=== PATIENT | male | born 1960 | race Caucasian/White ===

== ENCOUNTER → 2017-11-07 | Outpatient (CLI) | payer OTHER ==
[~2017-11-07] MED LIST: GLUCTAB7 PO; MULTTAB58 PO; anti-inflammatory PO
--- NOTE | 2017-11-07 11:37 | DIAGNOSTIC IMAGING REPORT ---
R HIP UNILATERAL 2 VIEWS CLINICAL HISTORY: 57 years-old Male presenting with M25.551 Right hip pain right. TECHNIQUE: Frontal and frog-leg lateral views of the right hip were obtained. COMPARISON: None. FINDINGS: Right hip joint congruent. No acute fracture. No advanced degenerative change. No malalignment. Visualized portion of the bony pelvis normal. IMPRESSION: No acute osseous injury or dense degenerative change of the right hip. Electronically signed by: Zheng Porras M.D. 11/07/2017 11:36 AM Dictated Date/Time: 11/07/2017 11:35 AM
== END | disposition home or self-care (01) ==
LOC: C.RAD 10:03
PROVIDERS: ATTEND Neuromusculoskeletal Medicine & OMM
DX: M25.551 Pain in right hip (principal)

== ENCOUNTER → 2017-11-14 | Outpatient (CLI) | payer OTHER ==
[2017-11-14 09:41] LABS: HEMOGLOBIN A1C 5.2 % (4.5-5.6)
[2017-11-14 09:49] LABS: BLOOD UREA NITROGEN 14 mg/dl (7-18); CALCIUM 8.8 mg/dl (8.5-10.1); CARBON DIOXIDE 30 mmol/L (21-32); CREATININE 0.94 mg/dl (0.60-1.40); GLUCOSE 93 mg/dl (70-99); POTASSIUM 4.5 mmol/L (3.5-5.1); SODIUM 139 mmol/L (136-145)
== END | disposition home or self-care (01) ==
LOC: C.LAB 09:00
PROVIDERS: ATTEND Neuromusculoskeletal Medicine & OMM
DX: R73.09 Other abnormal glucose (principal)

== ENCOUNTER 2019-01-14 13:18 | Observation (INO) ==
[2019-01-14] MEDS ORDERED: SODIUM CHLORIDE 0.9% 1000ML 1,000 ML IV SCH ×2 (14:15→19:30)
--- NOTE | 2019-01-14 14:31 | XRay Report ---
XR chest 1V portable CLINICAL HISTORY: Chest Pain dyspnea COMPARISON STUDY: No previous studies for comparison. FINDINGS: The bones soft tissues and hemidiaphragms are normal. The cardiomediastinal silhouette is n ormal. The lungs are clear. The pulmonary vasculature is normal. IMPRESSION: Negative chest. The above report was generated using voice recognition software. It may contain grammatical, syntax or spelling errors. Electronically signed by: Aldair Brito M.D. 01/14/2019 2:30 PM
[2019-01-14 14:34] LABS: Eosinophils # (auto) 0.02 K/uL (0-0.5); Eosinophils % (auto) 0.4 %; Hematocrit (blood only) 45.6 % (42-52); Immature Granulocytes # (auto) 0.01 K/uL (0.00-0.02); Immature Granulocytes % (auto) 0.2 %; Lymphocytes # (auto) 1.65 K/uL (1.2-3.4); Lymphocytes % (auto) 29.1 %; Mean Corpuscular Hgb Conc 35.1 g/dL (32-36); Mean Corpuscular Volume 89.9 fL (80-100); Mean Platelet Volume 8.9 fL (7.4-10.4); Monocytes # (auto) 0.31 K/uL (0.11-0.59); Monocytes % (auto) 5.5 %; Neutrophils # (auto) 3.68 K/uL (1.4-6.5); Neutrophils % (auto) 64.8 %; Platelet Count 156 K/uL (130-400); RDW Coefficient of Variation 12.5 % (11.5-14.5); RDW Standard Deviation 41.1 fL (36.4-46.3); Red Blood Count 5.07 M/uL (4.7-6.1); White Blood Count 5.67 K/uL (4.8-10.8)
[2019-01-14] MEDS ORDERED: ASPIRIN CHEW 324 MG PO STA (14:37)
[2019-01-14 14:44] LABS: INR 1.1 (0.9-1.1); Prothrombin Time 10.8 Seconds (9.0-12.0)
[2019-01-14 14:52] LABS: Alanine Aminotransferase 21 U/L (12-78); Albumin Level 4.3 gm/dl (3.4-5.0); Aspartate Aminotransferase 43 U/L (15-37); BUN Creatinine Ratio 18.9 (10-20); Blood Urea Nitrogen 14 mg/dl (7-18); Calcium 9.6 mg/dl (8.5-10.1); Carbon Dioxide 27 mmol/L (21-32); Chloride 106 mmol/L (98-107); Creatinine Clr Calc Pharmacy 118.5 ml/min; Est GFR (African American) 117.2; Est GFR (Non-African American) 101.1; Glucose 105 mg/dl (70-99); Potassium 3.8 mmol/L (3.5-5.1); Sodium 139 mmol/L (136-145)
[2019-01-14 14:56] LABS: Albumin Globulin Ratio 1.3 (0.9-2); Alkaline Phosphatase 74 U/L (45-117); Globulin 3.2 gm/dl (2.5-4.0); Total Protein 7.5 gm/dl (6.4-8.2); Troponin I < 0.015 ng/ml (0-0.045)
--- NOTE | 2019-01-14 16:22 | History & Physical Report ---
Date of Service January 14, 2019 Assessment & Plan (1) Chest pain: Associated with dizziness and diaphoresis. Chest pain symptoms lasted 5 minutes then resolved. He continues to feel "dizzy" but orthostatic BPs are normal. Differential - cardiac (ischemic) vs GI (GERD/esophageal spasm) vs PEs (extensive travel in September/October/November) vs other. Plan : 1. He has had considerable GI symptoms the last few days so will give GI cocktail now followed by PPI. 2. Serial troponins. 3. Telemetry. 4. Continue aspirin for now. 5. CTA chest -- r/o PEs. If negative then will pursue stress echo in AM. 6. Check lipids in am. 7. Check TSH, r/o hyperthyroidism. Present on Admission?: Yes (2) Total bilirubin, elevated: 2014 total bilirubin was also mildly elevated with normal direct bilirubin. 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 No additional work-up needed. Present on Admission?: Yes (3) Elevated CPK: Patient was out in his yard yesterday doing heavy yard work and then worked out at the gym for 1-2 hours today. Thus, he has mild rhabdomyolysis from heavy exertional activity. Hydrate, repeat CPK in am. Present on Admission?: Yes (4) Elevated blood-pressure reading without diagnosis of hypertension: Trend BPs for now. Present on Admission?: Yes (5) DVT prophylaxis: Low risk for VTE. If CTA chest is negative for PE then simply ambulate. Will place patient on observation status. If work-up is negative then likely home tomorrow. History of Present Illness Chief Complaint: chest pain Primary Care Provider: Silvino Randall, DO 58yo male with no significant PMH who presents with concern of chest pain. He was attending [employer] services at noon and roughly senior care through the service he developed chest discomfort in the lower mid-sternal area. The pain lasted 2-5 minutes at most. He described the pain as a "piercing" or tightness. He felt a little lightheaded and was diaphoretic. The pain did not radiate into the arms, neck or jaw. He did not have dyspnea but he stated he took deep breaths to help with the symptoms. After the symptoms resolved he managed to continue attending the [employer] service. However, he felt shaky and lightheaded. Over the last few days he had what he thought was reflux symptoms. He took mylaanta last night for the BEAR. He took the mylaanta right at bedtime. He had "churning" in his stomach along with burping. No actual burning sensation or nausea. Last meal was breakfast; tolerated this without difficulty. Also attended an exercise class this am for about an hour and felt well without any limiting symptoms. In fact he is an avid cycler and has had no recent chest pain or dyspnea (cycles for 1-2 hours each work-out). He traveled (by car) to [place] in and then traveled back to [place] on December 08. No travel since. Allergies Allergy/AdvReac Type Severity Reaction Status Date / Time No Known Allergies Allergy Unverified 01/14/19 14:15 Home Medications Home Medications Medication Instructions Recorded Confirmed Type coenzyme Q10 [CoQ-10] 200 mg PO DAILY 01/14/19 01/14/19 History glucosamine sulfate [Glucosamine] 500 mg PO DAILY 01/14/19 01/14/19 History multivitamin [Multiple Vitamins] 1 tab PO DAILY 01/14/19 01/14/19 History Past Med/Surg History Medical History No significant past medical history Surgical History History of arthroscopic knee surgery right knee Family History Father , age 78 Congestive heart failure autopsy showed he from CHF Hypertension Mother , age 68 from MVA Diabetes Brother Diabetes Social History Preferred Language: Turkish Communication Ability: Effective 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 Beliefs That Will Affect Care: None marital status: marital status details: 3 children Current Living Situation: Spouse current occupational status: retired Other Information That Helps Us Care for You: 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 Feels Safe at Home: Yes Safety Concerns: Feels Safe At This Time Smoking Status: Never smoker Do You Dip or Chew Tobacco: No Second Hand Exposure: No Tobacco Cessation Education Requested by Patient: No Hx Alcohol Use: No Hx Substance Use: No Review of Systems Constitutional: no fever, no anorexia, no weight loss and no weight gain Eyes: no worsening vision Ear, Nose, Mouth, Throat: no nasal congestion, no sore throat and no dysphagia Respiratory: no dyspnea, no dyspnea on exertion, no hemoptysis, no pain on inspiration and no sputum production Cardiovascular: as per Subjective / HPI and + chest pain; no orthopnea, no paroxysmal nocturnal dyspnea and no edema Gastrointestinal: + belching and + heartburn; no abdominal pain, no vomiting, no change in stools, no constipation, no diarrhea/loose stools, no blood in stools and no melena Genitourinary: no dysuria Musculoskeletal: + joint pain (knees); no back pain Integumentary: no rash Neurologic: no paralysis, no tingling and no numbness Psychiatric: + anxiety (during the episode today); no depression and no abnormal sleep pattern Endocrine: no diabetes Hematologic / Lymphatic: no easy bleeding and no easy bruising Physical Exam Constitutional: well developed and well nourished; no acute distress and not ill appearing Eyes: PERRL ENMT: external ear and nose normal, oropharynx normal Ears: no EAC abnormality and no TM abnormality Neck: trachea midline, no thyromegaly Respiratory: normal respiratory effort, lungs clear to auscultation Cardiovascular: RRR, no murmur, no edema Heart Sounds: normal S1 and normal S2 Vessels: posterior tibial pulses present and dorsalis pedis pulses present; no JVD Chest (Breasts): Additional Comments: no reproducible chest wall pain to palpation Gastrointestinal (Abdomen): normal bowel sounds, soft, nontender, no hepatosplenomegaly Musculoskeletal: no cyanosis or clubbing, extremities motor strength 5/5 Skin: no rashes, warm and dry Neurologic: patellar DTR's 2+ bilat, sensation intact moves all extremities; no focal motor deficits Psychiatric: A+Ox3, euthymic affect Mood: no anxious mood Lymphatic: no cervical lymphadenopathy Results & Data Vital Signs (Past 12 Hours) Vital Signs Temp Pulse Resp BP Pulse Ox 01/14/19 15:11 54 L 16 150/86 H 01/14/19 14:26 51 L 20 130/78 01/14/19 13:25 37.1 C 63 18 171/86 H 97 Laboratory Results Laboratory Results - last 24 hr 01/14/19 01/14/19 01/14/19 14:24 14:24 14:24 WBC 5.67 RBC 5.07 Hgb 16.0 Hct 45.6 MCV 89.9 MCH 31.6 MCHC 35.1 RDW Std Deviation 41.1 RDW Coeff of Jenn 12.5 Plt Count 156 MPV 8.9 Immature Gran % (Auto) 0.2 Neut % (Auto) 64.8 Lymph % (Auto) 29.1 [place] % (Auto) 5.5 Eos % (Auto) 0.4 Baso % (Auto) 0.0 Immature Gran # (Auto) 0.01 Neut # (Auto) 3.68 Lymph # (Auto) 1.65 [place] # (Auto) 0.31 Eos # (Auto) 0.02 Baso # (Auto) 0.00 PT 10.8 INR 1.1 Sodium 139 Potassium 3.8 Chloride 106 Carbon Dioxide 27 Anion Gap 6.0 BUN 14 Creatinine 0.75 Est Cr Clr Drug Dosing 118.5 Est GFR ( Amer) 117.2 Est GFR (Non-Af Amer) 101.1 BUN/Creatinine Ratio 18.9 Glucose 105 H Calcium 9.6 Total Bilirubin 2.0 H AST 43 H ALT 21 Alkaline Phosphatase 74 Total Creatine Kinase Troponin I < 0.015 Total Protein 7.5 Albumin 4.3 Globulin 3.2 Albumin/Globulin Ratio 1.3 Lipase 114 TSH 01/14/19 14:24 WBC RBC Hgb Hct MCV MCH MCHC RDW Std Deviation RDW Coeff of Jenn Plt Count MPV Immature Gran % (Auto) Neut % (Auto) Lymph % (Auto) [place] % (Auto) Eos % (Auto) Baso % (Auto) Immature Gran # (Auto) Neut # (Auto) Lymph # (Auto) [place] # (Auto) Eos # (Auto) Baso # (Auto) PT INR Sodium Potassium Chloride Carbon Dioxide Anion Gap BUN Creatinine Est Cr Clr Drug Dosing Est GFR ( Amer) Est GFR (Non-Af Amer) BUN/Creatinine Ratio Glucose Calcium Total Bilirubin AST ALT Alkaline Phosphatase Total Creatine Kinase 756 H Troponin I Total Protein Albumin Globulin Albumin/Globulin Ratio Lipase TSH 0.293 L Diagnostic Findings cxr - no infiltrates ekg - my reading - NSR, RBBB, no ST changes; no change from 2015 EKG. Code Status & VTE Plan Code Status level 1 full code VTE Prophylaxis Plan VTE Prophylaxis will be ordered: No (1) Chest pain Chest pain type: unspecified Qualified Code(s): R07.9 - Chest pain, unspecified
[2019-01-14] MEDS ORDERED: GI COCKTAIL ED USE PO ONE ×2 (17:17→17:21)
[2019-01-14] MEDS ORDERED: OPTIRAY 320 125ml IV PRN (18:28)
--- NOTE | 2019-01-14 18:48 | CT Scan Report ---
CHEST CTA for PULMONARY ARTERIES CT DOSE: 451.36 mGy.cm HISTORY: recent travel, atypical chest pain TECHNIQUE: Multiaxial CT images of the chest were performed following the intravenous administration of contrast to evaluate the pulmonary arteries. Maximal intensity projection images were also obtaine d. A dose lowering technique was utilized adhering to the principles of ALARA. COMPARISON STUDY: None. FINDINGS: Normal caliber thoracic aorta with no evidence for dissection. No pleural or pericardial ef fusions. The heart is normal in size. No filling defects within the pulmonary arteries to suggest pul monary embolus. The visualized liver and spleen are unremarkable. No mediastinal or hilar lymphadenop athy. Normal esophagus. No suspicious lytic or blastic osseous lesions. No pneumothorax. The central airways are patent. The lungs are clear. IMPRESSION: No evidence for pulmonary embolus. Electronically signed by: Abbe Cardona M.D. 01/14/2019 6:46 PM
[2019-01-14] MEDS ORDERED: ALUMINUM/MAGNESIUM SUSP 30 ML UDC PO PRN (18:50)
[2019-01-14] MEDS ORDERED: NITROGLYCERIN SL 0.4 MG/TAB TAB SL PRN (18:50)
[2019-01-14] MEDS ORDERED: ACETAMINOPHEN 325 MG TAB PO PRN (18:50)
[2019-01-14] MEDS ORDERED: ONDANSETRON INJ 2 MG/ML 2 ML VIAL IV PRN (18:50)
[2019-01-14] MEDS ORDERED: PANTOprazole 40 MG TAB PO STA (19:18)
--- NOTE | 2019-01-14 20:14 | Emergency Department Note ---
Entered by Luc Wood acting as a scribe for Earnest Schmitz DO History of Present Illness General Chief complaint: Chest Pain Stated complaint: CHEST TIGHTNESS/ ANXIETY Source: patient History of Present Illness Onset (ago): hour(s) (1.5) Location: chest Pain Consistency: + now resolved Current Pain Intensity: 0 Quality: + other (pressure) Exacerbated By: not by other (exertion) Associated symptoms: + diaphoresis and + other (lightheadedness, pale) The patient is a 59 year male who presents to the Emergency Room with complaints of currently resolved chest pressure beginning at 12:30 today, about 1.5 hours prior to arrival. The patient reports that he was sitting today when he developed central chest pressure, diaphoresis, lightheadedness, and became pale. He also states that also started deep breathing. His symptoms resolved after five minutes. He received an EKG prior to arrival that was unremarkable. He reports over the past couple of days he has had some chest discomfort that felt different and seemed to be related to indigestion. This pain primarily occurred at night and that was relieved by belching. He states that he rides a bike several hours per week and he has never had chest pain with exertion, including when he exercised this morning. Home Medications Home Medications Medication Instructions Recorded Confirmed Type coenzyme Q10 [CoQ-10] 200 mg PO DAILY 01/14/19 01/14/19 History glucosamine sulfate [Glucosamine] 500 mg PO DAILY 01/14/19 01/14/19 History multivitamin [Multiple Vitamins] 1 tab PO DAILY 01/14/19 01/14/19 History Allergies Allergy/AdvReac Type Severity Reaction Status Date / Time No Known Allergies Allergy Unverified 01/14/19 14:15 Past Med/Surg History Medical History No significant past medical history Surgical History History of arthroscopic knee surgery right knee Family History Father , age 78 Congestive heart failure autopsy showed he from CHF Hypertension Mother , age 68 from MVA Diabetes Brother Diabetes Social History Preferred Language: Icelandic Communication Ability: Effective 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 and A total of 10 systems reviewed and were otherwise negative Physical Exam Vital Signs Vital Signs - 24 hr 01/14/19 13:25 01/14/19 14:26 01/14/19 15:11 Temperature 37.1 C Temperature Source Oral Sepsis Recent Fever Within 48 Hours No Sepsis New/Unexplained Change in Mental Status No Sepsis Action Taken by Nursing No Action Required Pulse Rate - Lying Pulse Rate - Sitting Pulse Rate - Standing Pulse Rate 63 51 L 54 L Pulse Rate [Left] Pulse Rate from SpO2 Sensor Pulse Rhythm [Left] Pulse Strength [Left] Respiratory Rate 18 20 16 Respiratory Effort / Characteristics Respiratory Depth Normal Respiratory Pattern Blood Pressure - Lying Blood Pressure - Sitting Blood Pressure- Standing Blood Pressure 171/86 H 130/78 150/86 H Blood Pressure [Left Arm] Blood Pressure Mean 114 95 107 Blood Pressure Mean [Left Arm] Blood Pressure Position [Left Arm] Pulse Oximetry 97 Oxygen Delivery Method Room Air 01/14/19 16:30 01/14/19 17:00 01/14/19 17:01 Temperature Temperature Source Sepsis Recent Fever Within 48 Hours Sepsis New/Unexplained Change in Mental Status Sepsis Action Taken by Nursing Pulse Rate - Lying Pulse Rate - Sitting Pulse Rate - Standing Pulse Rate 66 65 63 Pulse Rate [Left] Pulse Rate from SpO2 Sensor Pulse Rhythm [Left] Pulse Strength [Left] Respiratory Rate 28 H 18 20 Respiratory Effort / Characteristics Respiratory Depth Respiratory Pattern Blood Pressure - Lying Blood Pressure - Sitting Blood Pressure- Standing Blood Pressure 143/94 H 152/98 H Blood Pressure [Left Arm] Blood Pressure Mean 110 116 Blood Pressure Mean [Left Arm] Blood Pressure Position [Left Arm] Pulse Oximetry Oxygen Delivery Method 01/14/19 17:29 01/14/19 17:31 01/14/19 17:32 Temperature Temperature Source Sepsis Recent Fever Within 48 Hours Sepsis New/Unexplained Change in Mental Status Sepsis Action Taken by Nursing Pulse Rate - Lying 62 Pulse Rate - Sitting 65 Pulse Rate - Standing 72 Pulse Rate 67 86 Pulse Rate [Left] Pulse Rate from SpO2 Sensor 68 Pulse Rhythm [Left] Pulse Strength [Left] Respiratory Rate 16 18 Respiratory Effort / Characteristics Respiratory Depth Respiratory Pattern Blood Pressure - Lying 129/83 Blood Pressure - Sitting 146/88 H Blood Pressure- Standing 140/92 Blood Pressure 129/83 140/92 Blood Pressure [Left Arm] Blood Pressure Mean 98 108 Blood Pressure Mean [Left Arm] Blood Pressure Position [Left Arm] Pulse Oximetry 98 Oxygen Delivery Method 01/14/19 18:54 01/14/19 19:35 Temperature 37.3 C 36.7 C Temperature Source Oral Oral Sepsis Recent Fever Within 48 Hours Sepsis New/Unexplained Change in Mental Status Sepsis Action Taken by Nursing Pulse Rate - Lying Pulse Rate - Sitting Pulse Rate - Standing Pulse Rate Pulse Rate [Left] 79 53 L Pulse Rate from SpO2 Sensor Pulse Rhythm [Left] Regular Pulse Strength [Left] Normal Respiratory Rate 18 19 Respiratory Effort / Characteristics Non-Labored Respiratory Depth Normal Normal Respiratory Pattern Regular Blood Pressure - Lying Blood Pressure - Sitting Blood Pressure- Standing Blood Pressure Blood Pressure [Left Arm] 151/65 H 145/86 H Blood Pressure Mean Blood Pressure Mean [Left Arm] 93 105 Blood Pressure Position [Left Arm] Sitting Sitting Pulse Oximetry 93 97 Oxygen Delivery Method Nasal Cannula Room Air GENERAL: Sitting up in bed, alert, well appearing, well nourished, no distress, non-toxic EYE EXAM: normal conjunctiva. OROPHARYNX: no exudate, no erythema, lips, buccal mucosa, and tongue normal and mucous membranes are moist NECK: supple, no nuchal rigidity, no adenopathy, non-tender LUNGS: Clear to auscultation. Normal chest wall mechanics HEART: no murmurs, S1 normal and S2 normal ABDOMEN: abdomen soft, non-tender, normo-active bowel, sounds, no masses, no rebound or guarding. BACK: Back is symmetrical on inspection and there is no deformity, no midline tenderness, no CVA tenderness. SKIN: no rashes and no bruising UPPER EXTREMITIES: upper extremities are grossly normal. LOWER EXTREMITIES: No pitting edema, calves are equal bilaterally. NEURO EXAM: Normal sensorium, cranial nerves II-XII grossly intact, normal speech, no gross weakness of arms, no gross weakness of legs. Gross sensation intact. Course ED COURSE: Vital signs were reviewed and showed hypertension felt to be situational The patients medical record was reviewed The above diagnostic studies were performed and reviewed. ED treatments and interventions as stated above. 1406: The patient was evaluated in room C8. A complete history and physical examination was performed. 1528: I updated the patient on current results. 1532: I consulted Dr. Mcneal [facility] Hospitalist. The patient will be reevaluated for hospitalization. Based on the patients age, coexisting illnesses, exam and lab findings the decision to treat as an inpatient was made. The patient remained stable while under my care. The patient will be evaluated for further management. Administered Medications Ioversol (Optiray 320 125ml) 100 ml IV ONCE PRN PRN Reason: Interaction Checking Stop: 01/18/19 18:27 Last Admin: 01/14/19 18:29 Dose: 100 ml Documented by: [id number] Discontinued Medications Al Hydrox/Mg Hydrox/Simethicone () 1 dose PO ONE ONE Stop: 01/14/19 17:18 Last Admin: 01/14/19 17:56 Dose: Not Given Documented by: [id number] Al Hydrox/Mg Hydrox/Simethicone () Confirm Administered Dose 1 dose PO .STK-MED ONE Stop: 01/14/19 17:22 Last Admin: 01/14/19 17:28 Dose: 1 dose Documented by: [id number] Aspirin (Aspirin) 324 mg PO NOW STA Stop: 01/14/19 14:38 Last Admin: 01/14/19 14:41 Dose: 324 mg Documented by: [id number] Sodium Chloride (Nss 1000ml) 1,000 mls @ 999 mls/hr IV .Q1H1M JOSH Stop: 01/14/19 15:15 Last Infusion: 01/14/19 16:56 Dose: 0 mls/hr Documented by: [id number] Admin: 01/14/19 14:30 Dose: 999 mls/hr Documented by: [id number] Medical Decision Making Differential Diagnosis Differential diagnoses includes but is not limited to acute coronary syndrome, myocardial infarction, pericarditis, pulmonary embolus, aortic dissection, pneumonia, pneumothorax, musculoskeletal, shingles, esophageal. Medical Records Attestation: I reviewed the patient's medical records. Home Medications Current Medication List: was personally reviewed by me Laboratory Data Attestation: I reviewed the patient's lab results. Result diagrams: 01/14/19 14:24 01/14/19 14:24 Lab Results 0401/14/19 01/14/19 Range/Units 14:24 14:24 14:24 WBC 5.67 (4.8-10.8) K/uL RBC 5.07 (4.7-6.1) M/uL Hgb 16.0 (14.0-18.0) g/dL Hct 45.6 (42-52) % MCV 89.9 (80-100) fL MCH 31.6 (25-34) pg MCHC 35.1 (32-36) g/dL RDW Std Deviation 41.1 (36.4-46.3) fL RDW Coeff of Jenn 12.5 (11.5-14.5) % Plt Count 156 (130-400) K/uL MPV 8.9 (7.4-10.4) fL Immature Gran % (Auto) 0.2 % Neut % (Auto) 64.8 % Lymph % (Auto) 29.1 % Baxter % (Auto) 5.5 % Eos % (Auto) 0.4 % Baso % (Auto) 0.0 % Immature Gran # (Auto) 0.01 (0.00-0.02) K/uL Neut # (Auto) 3.68 (1.4-6.5) K/uL Lymph # (Auto) 1.65 (1.2-3.4) K/uL Baxter # (Auto) 0.31 (0.11-0.59) K/uL Eos # (Auto) 0.02 (0-0.5) K/uL Baso # (Auto) 0.00 (0-0.2) K/uL PT 10.8 (9.0-12.0) Seconds INR 1.1 (0.9-1.1) Sodium 139 (136-145) mmol/L Potassium 3.8 (3.5-5.1) mmol/L Chloride 106 (98-107) mmol/L Carbon Dioxide 27 (21-32) mmol/L Anion Gap 6.0 (3-11) BUN 14 (7-18) mg/dl Creatinine 0.75 (0.6-1.4) mg/dl Est Cr Clr Drug Dosing 118.5 ml/min Est GFR ( Amer) 117.2 Est GFR (Non-Af Amer) 101.1 BUN/Creatinine Ratio 18.9 (10-20) Glucose 105 H (70-99) mg/dl Calcium 9.6 (8.5-10.1) mg/dl Total Bilirubin 2.0 H (0.2-1) mg/dl AST 43 H (15-37) U/L ALT 21 (12-78) U/L Alkaline Phosphatase 74 (45-117) U/L Total Creatine Kinase (39-308) U/L Troponin I < 0.015 (0-0.045) ng/ml Total Protein 7.5 (6.4-8.2) gm/dl Albumin 4.3 (3.4-5.0) gm/dl Globulin 3.2 (2.5-4.0) gm/dl Albumin/Globulin Ratio 1.3 (0.9-2) Lipase 114 (73-393) U/L TSH (0.300-4.500) uIu/ml 01/14/19 Range/Units 14:24 WBC (4.8-10.8) K/uL RBC (4.7-6.1) M/uL Hgb (14.0-18.0) g/dL Hct (42-52) % MCV (80-100) fL MCH (25-34) pg MCHC (32-36) g/dL RDW Std Deviation (36.4-46.3) fL RDW Coeff of Jenn (11.5-14.5) % Plt Count (130-400) K/uL MPV (7.4-10.4) fL Immature Gran % (Auto) % Neut % (Auto) % Lymph % (Auto) % Baxter % (Auto) % Eos % (Auto) % Baso % (Auto) % Immature Gran # (Auto) (0.00-0.02) K/uL Neut # (Auto) (1.4-6.5) K/uL Lymph # (Auto) (1.2-3.4) K/uL Baxter # (Auto) (0.11-0.59) K/uL Eos # (Auto) (0-0.5) K/uL Baso # (Auto) (0-0.2) K/uL PT (9.0-12.0) Seconds INR (0.9-1.1) Sodium (136-145) mmol/L Potassium (3.5-5.1) mmol/L Chloride (98-107) mmol/L Carbon Dioxide (21-32) mmol/L Anion Gap (3-11) BUN (7-18) mg/dl Creatinine (0.6-1.4) mg/dl Est Cr Clr Drug Dosing ml/min Est GFR ( Amer) Est GFR (Non-Af Amer) BUN/Creatinine Ratio (10-20) Glucose (70-99) mg/dl Calcium (8.5-10.1) mg/dl Total Bilirubin (0.2-1) mg/dl AST (15-37) U/L ALT (12-78) U/L Alkaline Phosphatase (45-117) U/L Total Creatine Kinase 756 H (39-308) U/L Troponin I (0-0.045) ng/ml Total Protein (6.4-8.2) gm/dl Albumin (3.4-5.0) gm/dl Globulin (2.5-4.0) gm/dl Albumin/Globulin Ratio (0.9-2) Lipase (73-393) U/L TSH 0.293 L (0.300-4.500) uIu/ml Imaging Data Radiologist's Impression: Radiology results as stated below per my review and the radiologist's interpretation: XR chest 1V portable CLINICAL HISTORY: Chest Pain dyspnea COMPARISON STUDY: No previous studies for comparison. FINDINGS: The bones soft tissues and hemidiaphragms are normal. The cardiomediastinal silhouette is normal. The lungs are clear. The pulmonary vasculature is normal. IMPRESSION: Negative chest. The above report was generated using voice recognition software. It may contain grammatical, syntax or spelling errors. Electronically signed by: Aldair Brito M.D. 01/14/2019 2:30 PM ECG Data Attestation: I personally reviewed and interpreted this ECG as follows: Indication: chest pain Rate (beats per minute): 63 Rhythm: sinus rhythm Findings: + RBBB and + T-wave inversion (septal leads); no PVC Blood Pressure Blood Pressure Findings: Elevated blood pressure Blood Pressure Disposition: elevated BP felt to be situational MDM Narrative Patient is a 58-year-old male who presents the ER for chest pressure which started around 1230. Patient notes that he was feeling sweaty and lightheaded. He almost passed out. He does admit to some intermittent indigestion which is been present over the past several nights which is worse at night and start with a gassy pain and resolves with burping. He has no cardiac risk factors with the exception of a father with an OK. Labs were obtained and shows no significant leukocytosis or anemia. INR was unremarkable. BMP along with LFTs and troponin was negative. TSH and lipase was normal. EKG and chest x-ray was unremarkable. Patient was given aspirin. He was updated bedside. Although I favor this is extremely atypical to be cardiac especially as he is an avid cycler with his age, the chest pressure dizziness and lightheadedness in combination with some mild shortness of breath I did elect to discuss his case with the hospitalist for observation. Do not feel his other episodes at night are consistent with any cardiac etiology as they are different than what the patient is complaining of today. Impression & Plan Precordial chest pain Discharge Plan Visit Data *Final* Discharge Date/Time: 01/14/19 17:54 Chief Complaint: Chest Pain Stated Complaint: CHEST TIGHTNESS/ ANXIETY ED Provider: Earnest Schmitz Discharge Problem: Precordial chest pain Patient Disposition: Admitted As Inpatient Discharge Instructions Interventions: ED Discharge Assessment Last Done: 01/14/19 17:54 The scribe's documentation has been prepared under my direction and personally reviewed by me in its entirety. I confirm that the note above accurately reflects all work, treatment, procedures, and medical decision making performed by me.
[2019-01-15 05:38] LABS: Creatinine Clr Calc Pharmacy 129.5 ml/min; Est GFR (Non-African American) 105.3
[2019-01-15 05:42] LABS: Chol HDL Ratio 3; Cholesterol 156 mg/dl (0-200); Creatine Kinase 434 U/L (39-308); HDL Cholesterol 61 mg/dl; LDL Cholesterol Calculated 83 mg/dl; T4 Free Thyroxine 0.98 ng/dl (0.8-1.6); Triglycerides 62 mg/dl (0-150); Troponin I < 0.015 ng/ml (0-0.045); VLDL Cholesterol 12 mg/dl
[2019-01-15] MEDS ORDERED: ASPIRIN 81 MG ECTAB PO SCH (09:00)
[2019-01-15] MEDS ORDERED: MULTIVITAMIN TAB PO SCH (09:00)
[2019-01-15] MEDS ORDERED: NON-FORMULARY MEDICATION (Coenzyme Q10 [Coq-10] 200 MG) PO SCH (09:00)
[2019-01-15] MEDS ORDERED: PANTOprazole 40 MG TAB PO SCH (09:00)
[2019-01-15] MEDS ORDERED: NON-FORMULARY MEDICATION (Glucosamine Sulfate [Glucosamine] 500 MG) PO SCH (09:00)
--- NOTE | 2019-01-20 06:26 | Discharge Summary ---
Date of Service date of admission - January 14, 2019 date of discharge - January 15, 2019 Admission HPI Per Admitting Provider 58yo male with no significant PMH who presents with concern of chest pain. He was attending caodaism services at noon and roughly prison through the service he developed chest discomfort in the lower mid-sternal area. The pain lasted 2-5 minutes at most. He described the pain as a "piercing" or tightness. He felt a little lightheaded and was diaphoretic. The pain did not radiate into the arms, neck or jaw. He did not have dyspnea but he stated he took deep breaths to help with the symptoms. After the symptoms resolved he managed to continue attending the caodaism service. However, he felt shaky and lightheaded. Over the last few days he had what he thought was reflux symptoms. He took mylaanta last night for the BEAR. He took the mylaanta right at bedtime. He had "churning" in his stomach along with burping. No actual burning sensation or nausea. Last meal was breakfast; tolerated this without difficulty. Also attended an exercise class this am for about an hour and felt well without any limiting symptoms. In fact he is an avid cycler and has had no recent chest pain or dyspnea (cycles for 1-2 hours each work-out). He traveled (by car) to [place] in and then traveled back to [place] on December 08. No travel since. Principal Diagnosis chest pain, ACS ruled out, negative stress test Discharge Exam Constitutional well developed and well nourished; no acute distress and not ill appearing ENMT external ear and nose normal, oropharynx normal Respiratory normal respiratory effort, lungs clear to auscultation Cardiovascular Rate/Rhythm: regular rate and regular rhythm Heart Sounds: normal S1 and normal S2; no murmur Vessels: posterior tibial pulses present and dorsalis pedis pulses present; no JVD Extremities: no edema Chest (Breasts) Additional Comments: no reproducible chest wall pain Gastrointestinal (Abdomen) normal bowel sounds, soft, nontender, no hepatosplenomegaly Skin no rashes, warm and dry Psychiatric A+Ox3, euthymic affect Discharge Data Allergies Allergy/AdvReac Type Severity Reaction Status Date / Time No Known Allergies Allergy Unverified 01/14/19 14:15 Ordered Studies 1. CTA chest - negative for PE, infiltrates, etc. 2. exercise stress echocardiogram - entirely normal. Normal LV function with no inducible areas of wall motion abnormality. Hospital Course (1) Chest pain: Associated with dizziness and diaphoresis. Chest pain symptoms lasted 5 minutes then resolved. Telemetry was normal. Serial troponins were negative. EKGs were normal. CTA chest did not show any abnormalities or PE. He underwent exercise stress echocardiogram and this was negative. His pain was felt to be GI in origin as he had been having upper GI symptoms in the days leading up to his presentation. His chest pain may have been esophageal in origin (spasm, etc). Recommended institution of PPI and to obtain a GI referral for consideration of EGD in the near-future. (2) Total bilirubin, elevated: 2014 total bilirubin was also mildly elevated with normal direct bilirubin. 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 No additional work-up needed. Simply follow as outpatient with routine LFTs. (3) Elevated CPK: Patient was out in his yard doing heavy yard work the day prior to admission and then worked out at the gym for 1-2 hours the day of admission. Thus, he had mild rhabdomyolysis from heavy exertional activity. With hydration his CPK nearly normalized by the AM of hospital day #2. (4) Elevated blood-pressure reading without diagnosis of hypertension: BPs were mildly high at times possibly related to the anxiety of being in the hospital. He was not started on any medication. Recommend outpatient surveillance. Total Time Total Time Spent Total Time Spent (In Minutes): 45 Total Time Includes: Examination of the Patient, Discharge Planning and Medication Reconciliation Discharge Plan Discharge Items Patient Disposition: Home - Self-Care Reason For Visit: CHEST PAIN Discharge Diagnosis: chest pain - NO evidence of blood clots in the lungs, no evidence of heart attack (negative/normal stress test), no evidence of aneurysm of the chest. Suspect the pain was due to reflux disease and/or esophageal spasm. Discharge Goals: Diagnostic testing Activity: Resume your previous activity Non-emergency contact: Primary Care Provider Call non-emergency contact if: you have any medication questions and your symptoms worsen Follow-up/Referrals: Silvino Randall, [Primary Care Provider] - (please see Dr. Randall within 1 week ) Diet: Regular Addtl Provider Instructions: From Mario Guillen - Hospitalist: You were admitted for chest discomfort, dizziness, and simply feeling unwell. All blood work for your heart was negative ruling out a heart attack. Your exercise stress test was NORMAL/NEGATIVE. Your CAT scan of the lungs did NOT show evidence of pneumonia, blood clots, aneurysm, or other abnormalities. Your heart monitoring was normal. At this time it seems that your presenting symptoms were likely GI (gastrointestinal) in origin. You may have had a bad reflux episode that led to esophageal spasm. This can be quite painful. 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 Randall about seeing a utility porter and considering an EGD (upper endoscopy) Follow-up - see Dr. Randall within 1 week Return to [facility] if - * you have fevers over 100.5 degrees * you have recurrent, severe chest pain * any other concerns Prescriptions: New pantoprazole 40 mg Tablet,Delayed Release (Dr/Ec) 40 mg PO QAM Qty: 30 RF: 1 Continued multivitamin [Multiple Vitamins] Tablet 1 tab PO DAILY RF: 0 glucosamine sulfate [Glucosamine] 500 mg Tablet 500 mg PO DAILY RF: 0 coenzyme Q10 [CoQ-10] 100 mg Capsule 200 mg PO DAILY RF: 0 Stand-Alone Forms: Call Back Authorization, [facility]/Other Patient Handouts: GERD, GERD Lifestyle Changes Discharge Orders: Discharge Order (Routine); Ordered 01/15/19 Ordered By: Mario Guillen Admission Data Admit Date/Time: 01/14/19 17:23 Attending Provider: Mario Guillen Admit Provider: Mario Guillen Primary Care Provider: Silvino Randall Other Providers: Pino Mcneal Service: Telemetry Other Interventions: Discharge Summary Assessment (RN) Last Done: 01/15/19 13:45 Pending Studies at Discharge: No DC Date/Time DO NOT enter until pt leaves facility: 01/15/19 14:00
== END 2019-01-15 14:00 | disposition home or self-care (01) ==
LOC: 2S 13:18 → ED 13:18 → 2S 17:54